=== PATIENT | male | born 1960 | race Caucasian/White ===

== ENCOUNTER 2018-12-18 10:24 | Emergency (ER) | payer BC ==
[~2018-12-18] VITALS: Ht 172.7 cm; Wt 68.2 kg
[2018-12-18 10:36] VITALS: TEMP 97.9
[2018-12-18 10:56] LABS: BASO % 0.5 % (0.0-2.0); EOS # 0.1 (0.0-0.7); EOS % 1.6 % (0-4.0); GRAN # 3.8 (1.4-6.5); GRAN % 60.9 % (42.2-75.2); LYMPH # 1.7 (1.2-3.4); LYMPH % 28.1 % (20.0-51.0); MEAN CELL VOLUME 88 fl (80.0-100.0); MEAN CORPUSCULAR HEMOGLOBIN 29 pg (27.0-31.0); MEAN CORPUSCULAR HGB CONC 33 g/dl (33.0-37.0); MEAN PLATELET VOLUME 8.6 fl (7.4-10.4); MONO # 0.5 (0.1-0.6); MONO % 8.7 % (1.7-9.3); PLATELET COUNT 153 K/mm3 (130-400); RED BLOOD COUNT 4.76 M/mm3 (4.20-5.60)
[2018-12-18 11:01] LABS: ALANINE AMINOTRANSFERASE 28 U/L (21-72); ALBUMIN 4.1 gm/dL (3.5-5.0); ALKALINE PHOSPHATASE 55 U/L (50-136); ANION GAP 6 mmol/L (7-16); AST,SGOT 26 U/L (15-37); BILIRUBIN,TOTAL 0.8 mg/dL (0.0-1.0); BLOOD UREA NITROGEN 18 mg/dL (9-20); CARBON DIOXIDE 26 mmol/L (22-30); CHLORIDE 106 mmol/L (98-107); CREATININE, serum 0.63 (0.66-1.25); GLUCOSE 105 mg/dL (74-106); POTASSIUM 3.9 mmol/L (3.4-5.0); SODIUM 139 mmol/L (137-145); TOTAL PROTEIN 6.6 gm/dL (6.4-8.2)
[2018-12-18 11:10] LABS: INR 1.2 (0.8-3.0); PROTHROMBIN TIME 13.6 SECONDS (9.7-12.8)
[2018-12-18 11:13] LABS: TROPONIN-I < 0.012 ng/mL (0.000-0.035)
[2018-12-18 11:14] LABS: TRICYCLIC ANTIDEPRESS URINE NEGATIVE
[2018-12-18 13:00] VITALS: BP 147/104; PULSE 85
== END 2018-12-18 13:10 | disposition short-term general hospital (02) ==
LOC: COL.ER 10:24
PROVIDERS: Emergency Medicine
DX: I63.9 Cerebral infarction, unspecified (principal); R47.01 Aphasia
CPT/HCPCS: Q9967

== ENCOUNTER 2019-03-04 09:00 | Outpatient (RCR) | payer BC | END 2019-04-11 | disposition home or self-care (01) | LOC: WSST | DX: I69.990 Apraxia following unspecified cerebrovascular disease (principal); I69.920 Aphasia following unspecified cerebrovascular disease ==